=== PATIENT | male | born 1950 | race Caucasian/White ===

== ENCOUNTER 2020-07-23 18:34 | Inpatient (IN) ==
--- NOTE | 2020-07-23 18:58 | Emergency Department Note ---
History of Present Illness General Chief complaint: Head Injury, Minor Stated complaint: CONFUSION, Time Seen by Provider: 07/23/20 18:37 Source: patient Mode of arrival: EMS Limitations: altered mental status History of Present Illness Provider complaint: altered mental status Onset (ago): unknown This is a 70-year-old male presents emergency department via EMS for possible altered mental status. EMS reports bystanders at scene was concerned he was possibly injured while unloading a vehicle off of a truck. He states the reliability of this bystander is uncertain. Patient denies any injury, any pain. States he is uncertain who called 911 or why he is here. Patient states he thinks he has had occult problems but does not know what. He states he does take medications but cannot recall what they are. Patient otherwise cannot provide any additional history or information. Pt seen during a time of high acuity and national emergency pandemic while wearing PPE. Home Medications Medication Instructions Recorded Confirmed Type citalopram 40 mg PO DAILY 07/23/20 07/23/20 History trazodone 150 mg PO DAILY 07/23/20 07/23/20 History furosemide 20 mg PO DAILY PRN 07/24/20 07/24/20 History metoprolol tartrate 25 mg PO BID 07/24/20 07/24/20 History tamsulosin [Flomax] 0.4 mg PO DAILY 07/24/20 07/24/20 History Allergies Allergy/AdvReac Type Severity Reaction Status Date / Time [id number]-Tfh Reductase Allergy Severe unknown Verified 06/17/14 11:06 Inhibitor ketchup AdvReac Sneezing Unverified 07/23/20 20:07 Past Med/Surg History Social History Smoking Status: Never smoker Second Hand Exposure: Yes; Do You Dip or Chew Tobacco: No; Hx Alcohol Use: No Hx Substance Use: No Preferred Language: Slovak Communication Ability: Effective Cop Examiner Required: No Beliefs That Will Affect Care: None marital status: Single Current Living Situation: Alone Feels Safe at Home: Yes Safety Concerns: Feels Safe At This Time Assistive Devices: Glasses Review of Systems See HPI for pertinent positives & negatives. Unobtainable due to cognitive status Physical Exam Vital Signs Vital Signs - 24 hr 07/23/20 18:37 07/23/20 18:43 07/23/20 18:51 Temperature 37.3 C Temperature Source Oral Pulse Rate 71 80 Pulse Rate from SpO2 Sensor Respiratory Rate 28 H 16 Respiratory Effort / Characteristics Non-Labored Spontaneous Non-Labored Spontaneous Respiratory Depth Normal Normal Respiratory Pattern Regular Blood Pressure 164/100 H 164/100 H Blood Pressure Mean 121 121 Blood Pressure Position Semi-fowlers Pulse Oximetry 96 95 Oxygen Delivery Method Room Air Room Air Sepsis Recent Fever Within 48 Hours No Sepsis New/Unexplained Change in Mental Status N/A Sepsis Action Taken by Nursing No Action Required 07/23/20 19:39 07/23/20 20:18 07/23/20 20:30 Temperature Temperature Source Pulse Rate 68 74 67 Pulse Rate from SpO2 Sensor 69 74 67 Respiratory Rate 15 16 13 Respiratory Effort / Characteristics Respiratory Depth Respiratory Pattern Blood Pressure 152/102 H 157/114 H 158/98 H Blood Pressure Mean 118 128 118 Blood Pressure Position Pulse Oximetry 96 97 95 Oxygen Delivery Method Room Air Room Air Room Air Sepsis Recent Fever Within 48 Hours Sepsis New/Unexplained Change in Mental Status Sepsis Action Taken by Nursing 07/23/20 20:56 07/23/20 20:58 07/23/20 21:00 Temperature Temperature Source Pulse Rate 75 76 74 Pulse Rate from SpO2 Sensor 79 77 75 Respiratory Rate 16 13 Respiratory Effort / Characteristics Respiratory Depth Respiratory Pattern Blood Pressure 173/101 H 175/102 H 165/107 H Blood Pressure Mean 125 126 126 Blood Pressure Position Pulse Oximetry 96 97 96 Oxygen Delivery Method Room Air Room Air Room Air Sepsis Recent Fever Within 48 Hours Sepsis New/Unexplained Change in Mental Status Sepsis Action Taken by Nursing 07/23/20 21:29 07/23/20 21:30 07/23/20 22:00 Temperature Temperature Source Pulse Rate 72 72 71 Pulse Rate from SpO2 Sensor 72 72 71 Respiratory Rate 13 18 14 Respiratory Effort / Characteristics Respiratory Depth Respiratory Pattern Blood Pressure 182/107 H 166/104 H 178/110 H Blood Pressure Mean 132 124 132 Blood Pressure Position Pulse Oximetry 97 96 96 Oxygen Delivery Method Room Air Room Air Room Air Sepsis Recent Fever Within 48 Hours Sepsis New/Unexplained Change in Mental Status Sepsis Action Taken by Nursing 07/23/20 22:10 07/23/20 22:12 07/23/20 22:43 Temperature Temperature Source Pulse Rate 75 74 69 Pulse Rate from SpO2 Sensor 75 71 69 Respiratory Rate 17 18 17 Respiratory Effort / Characteristics Respiratory Depth Respiratory Pattern Blood Pressure 170/111 H 167/105 H 185/106 H Blood Pressure Mean 130 125 132 Blood Pressure Position Pulse Oximetry 96 96 96 Oxygen Delivery Method Room Air Room Air Room Air Sepsis Recent Fever Within 48 Hours Sepsis New/Unexplained Change in Mental Status Sepsis Action Taken by Nursing 07/23/20 23:10 07/23/20 23:12 07/23/20 23:30 Temperature Temperature Source Pulse Rate 68 71 Pulse Rate from SpO2 Sensor 76 69 71 Respiratory Rate 16 18 Respiratory Effort / Characteristics Respiratory Depth Respiratory Pattern Blood Pressure 167/102 H 161/102 H Blood Pressure Mean 123 121 Blood Pressure Position Pulse Oximetry 95 96 95 Oxygen Delivery Method Room Air Room Air Sepsis Recent Fever Within 48 Hours Sepsis New/Unexplained Change in Mental Status Sepsis Action Taken by Nursing 07/24/20 00:00 Temperature Temperature Source Pulse Rate 69 Pulse Rate from SpO2 Sensor 70 Respiratory Rate 15 Respiratory Effort / Characteristics Respiratory Depth Respiratory Pattern Blood Pressure 139/78 Blood Pressure Mean 98 Blood Pressure Position Pulse Oximetry 94 Oxygen Delivery Method Room Air Sepsis Recent Fever Within 48 Hours Sepsis New/Unexplained Change in Mental Status Sepsis Action Taken by Nursing GENERAL: alert, well appearing, well nourished, no distress, non-toxic HEAD: nc/at, no cephalohematoma, no galicia signs, no raccoon eyes EYE EXAM: normal conjunctiva, PERRL and EOM's grossly intact OROPHARYNX: no exudate, no erythema, lips, buccal mucosa, and tongue normal and mucous membranes are moist NECK: supple, no nuchal rigidity, no adenopathy, non-tender LUNGS: Clear to auscultation. Normal chest wall mechanics, no w/r/r HEART: no murmurs, S1 normal and S2 normal ABDOMEN: abdomen soft, non-tender, normo-active bowel sounds, no masses, no rebound or guarding. BACK: Back is symmetrical on inspection and there is no deformity, no midline tenderness, no CVA tenderness. SKIN: no rashes and no bruising UPPER EXTREMITIES: upper extremities are grossly normal. FROM, nml pulses b/l. LOWER EXTREMITIES: 2+ b/l pitting edema. FROM, nml pulses b/l. NEURO EXAM: Normal sensorium, cranial nerves II-XII grossly intact, normal speech, no gross weakness of arms, no gross weakness of legs. Gross sensation intact. Course Course 2135: Updated pt at bedside. 2215: Discussed with Dr. Bunch. 2250: Received a phone call from patient's sister, Roxann, cell phone [phone] who updated me on medication she found at the patient's residence. Trazodone 150 mg nightly, hydrobromide 40 mg p.o. daily, metoprolol tartrate 25 mg p.o. daily, nitro tabs as needed, furosemide 20 mg and pantoprazole 20 mg she stated were in bottles from 2019 and not more recent. He stated they were there was also vitamin D3, a multivitamin, iron supplementation at 65 mg, nasal spray, and tamsulosin 0.4 mg. Administered Medications Aspirin (Aspirin 81 Mg Ectab) 81 mg PO QAM ROXANA Stop: 08/23/20 08:59 Last Admin: 07/24/20 08:09 Dose: 81 mg Documented by: [id number] Citalopram Hydrobromide (Citalopram 40 Mg Tab) 40 mg PO DAILY ROXANA Stop: 08/23/20 08:59 Last Admin: 07/24/20 08:09 Dose: 40 mg Documented by: [id number] Metoprolol Tartrate (Metoprolol Tartrate 50 Mg Tab) 50 mg PO BID ROXANA Stop: 08/23/20 20:59 Last Admin: 07/24/20 20:06 Dose: 50 mg Documented by: [id number] Tamsulosin HCl (Tamsulosin Hcl 0.4 Mg Cap) 0.4 mg PO DAILY ROXANA Stop: 08/23/20 08:59 Last Admin: 07/24/20 08:09 Dose: 0.4 mg Documented by: [id number] Trazodone HCl (Trazodone Hcl 50 Mg Tab) 150 mg PO DAILY ROXANA Stop: 08/23/20 08:59 Last Admin: 07/24/20 08:09 Dose: 150 mg Documented by: [id number] Discontinued Medications Aspirin (Aspirin Chew 324 Mg) 324 mg PO NOW STA Stop: 07/23/20 21:54 Last Admin: 07/23/20 22:12 Dose: 324 mg Documented by: [id number] Gadobutrol (Gadobutrol 65ml Vial) 10 ml IV ONCE ONE Stop: 07/24/20 10:31 Last Admin: 07/24/20 10:30 Dose: 10 ml Documented by: [id number] Sodium Chloride (Nss 1000ml) 1,000 mls @ 125 mls/hr IV .Q8H ROXANA Stop: 08/22/20 18:59 Last Infusion: 07/24/20 07:12 Dose: 0 mls/hr Documented by: [id number] Infusion: 07/24/20 02:52 Dose: 75 mls/hr Documented by: [id number] Admin: 07/23/20 20:53 Dose: 125 mls/hr Documented by: [id number] Sodium Chloride (Nss 1000ml) 1,000 mls @ 75 mls/hr IV .[id number] ROXANA Stop: 07/24/20 15:28 Last Infusion: 07/24/20 17:39 Dose: 0 mls/hr Documented by: [id number] Admin: 07/24/20 06:10 Dose: 75 mls/hr Documented by: [id number] Infusion: 07/24/20 06:10 Dose: 75 mls/hr Documented by: [id number] Infusion: 07/24/20 04:39 Dose: 75 mls/hr Documented by: [id number] Admin: 07/24/20 02:59 Dose: 75 mls/hr Documented by: [id number] Thiamine HCl 500 mg/ Sodium (Chloride) 55 mls @ 208 mls/hr IV NOW STA Stop: 07/24/20 02:42 Last Infusion: 07/24/20 04:38 Dose: 0 mls/hr Documented by: [id number] Admin: 07/24/20 02:59 Dose: 208 mls/hr Documented by: [id number] Ioversol (Optiray 350 500ml) 120 ml IV ONCE ONE Stop: 07/23/20 20:40 Last Admin: 07/23/20 20:42 Dose: 120 ml Documented by: [id number] Metoprolol Tartrate (Metoprolol Tartrate 25 Mg Tab) 25 mg PO BID [facility] Stop: 08/23/20 08:59 Last Admin: 07/24/20 08:09 Dose: 25 mg Documented by: [id number] Metoprolol Tartrate (Metoprolol Tartrate 25 Mg Tab) 25 mg PO ONE ONE Stop: 07/24/20 11:46 Last Admin: 07/24/20 12:17 Dose: 25 mg Documented by: [id number] Potassium Chloride (Potassium Chloride Crtab 20 Meq Tabcr) 40 meq PO NOW STA Stop: 07/24/20 08:01 Last Admin: 07/24/20 08:12 Dose: 40 meq Documented by: [id number] Medical Decision Making Differential Diagnosis Differential diagnoses includes but is not limited to toxic, metabolic, infectious, traumatic, cardiac, neurologic, hematologic, psychiatric and inflammatory etiologies. Medical Records Attestation: I reviewed the patient's medical records. Home Medications Current Medication List: was personally reviewed by me Laboratory Data Attestation: I reviewed the patient's lab results. Result diagrams: 07/24/20 05:53 07/24/20 05:53 Lab Results 07/23/20 07/23/20 07/23/20 Range/Units 19:00 19:00 19:00 WBC 7.13 (4.8-10.8) K/uL RBC 4.79 (4.7-6.1) M/uL Hgb 11.0 L (14.0-18.0) g/dL Hct 36.0 L (42-52) % MCV 75.2 L (80-100) fL MCH 23.0 L (25-34) pg MCHC 30.6 L (32-36) g/dL RDW Std Deviation 49.7 H (36.4-46.3) fL RDW Coeff of Esther 17.8 H (11.5-14.5) % Plt Count 222 (130-400) K/uL MPV 10.9 H (7.4-10.4) fL Immature Gran % (Auto) 0.1 % Neut % (Auto) 67.5 % Lymph % (Auto) 18.4 % [place] % (Auto) 10.8 % Eos % (Auto) 2.9 % Baso % (Auto) 0.3 % Neut # (Auto) 4.81 (1.4-6.5) K/uL Lymph # (Auto) 1.31 (1.2-3.4) K/uL [place] # (Auto) 0.77 H (0.11-0.59) K/uL Eos # (Auto) 0.21 (0-0.5) K/uL Baso # (Auto) 0.02 (0-0.2) K/uL Immature Gran # (Auto) 0.01 (0.00-0.02) K/uL Sodium 145 (136-145) mmol/L Potassium 3.4 L (3.5-5.1) mmol/L Chloride 114 H (98-107) mmol/L Carbon Dioxide 24 (21-32) mmol/L Anion Gap 7.0 (3-11) BUN 9 (7-18) mg/dl Creatinine 1.22 (0.6-1.4) mg/dl Est Cr Clr Drug Dosing 66.6 ml/min Est GFR ( Amer) 69.7 ml/min Est GFR (Non-Af Amer) 60.1 ml/min BUN/Creatinine Ratio 7.3 L (10-20) Glucose 83 (70-99) mg/dl Calcium 8.5 (8.5-10.1) mg/dl Magnesium 1.8 (1.8-2.4) mg/dl Total Bilirubin 0.8 (0.2-1) mg/dl AST 16 (15-37) U/L ALT 19 (12-78) U/L Alkaline Phosphatase 61 (45-117) U/L Troponin I < 0.015 (0-0.045) ng/ml NT-Pro-B Natriuret Pep 397 (0-900) pg/ml Total Protein 6.3 L (6.4-8.2) gm/dl Albumin 3.2 L (3.4-5.0) gm/dl Globulin 3.1 (2.5-4.0) gm/dl Albumin/Globulin Ratio 1.0 (0.9-2) Triglycerides 76 (0-150) mg/dl Cholesterol 141 (0-200) mg/dl LDL Cholesterol, Calc 86 mg/dl VLDL Cholesterol, Calc 15 mg/dl HDL Cholesterol 40 mg/dl Cholesterol/HDL Ratio 4 Lipase 124 (73-393) U/L TSH 0.901 (0.300-4.500) uIu/ml Urine Color Urine Appearance (Clear) Urine pH (4.5-7.5) Ur Specific [place] (1.000-1.030) Urine Protein (Negative) Urine Glucose (UA) (Negative) Urine Ketones (Negative) Urine Blood (Negative) Urine Nitrite (Negative) Urine Bilirubin (Negative) Urine Urobilinogen (Negative) Ur Leukocyte Esterase (Negative) Urine Opiates Screen (Neg) Ur Methadone, Qual (Neg) Urine Barbiturates (Neg) Ur Phencyclidine (PCP) (Neg) U Amphetamin/Meth Scrn (Neg) MDMA (Ecstasy) Screen (Neg) U Benzodiazepines Scrn (Neg) Ur Cocaine Metabolite (Neg) U Marijuana (THC) Screen (Neg) Ethyl Alcohol mg/dL < 3.0 (0-3) mg/dl COVID-19 Eval Order SARS-CoV-2 (PCR) (Negative) 07/23/20 07/23/20 07/23/20 Range/Units 19:57 19:57 22:08 WBC (4.8-10.8) K/uL RBC (4.7-6.1) M/uL Hgb (14.0-18.0) g/dL Hct (42-52) % MCV (80-100) fL MCH (25-34) pg MCHC (32-36) g/dL RDW Std Deviation (36.4-46.3) fL RDW Coeff of Esther (11.5-14.5) % Plt Count (130-400) K/uL MPV (7.4-10.4) fL Immature Gran % (Auto) % Neut % (Auto) % Lymph % (Auto) % [place] % (Auto) % Eos % (Auto) % Baso % (Auto) % Neut # (Auto) (1.4-6.5) K/uL Lymph # (Auto) (1.2-3.4) K/uL [place] # (Auto) (0.11-0.59) K/uL Eos # (Auto) (0-0.5) K/uL Baso # (Auto) (0-0.2) K/uL Immature Gran # (Auto) (0.00-0.02) K/uL Sodium (136-145) mmol/L Potassium (3.5-5.1) mmol/L Chloride (98-107) mmol/L Carbon Dioxide (21-32) mmol/L Anion Gap (3-11) BUN (7-18) mg/dl Creatinine (0.6-1.4) mg/dl Est Cr Clr Drug Dosing ml/min Est GFR ( Amer) ml/min Est GFR (Non-Af Amer) ml/min BUN/Creatinine Ratio (10-20) Glucose (70-99) mg/dl Calcium (8.5-10.1) mg/dl Magnesium (1.8-2.4) mg/dl Total Bilirubin (0.2-1) mg/dl AST (15-37) U/L ALT (12-78) U/L Alkaline Phosphatase (45-117) U/L Troponin I (0-0.045) ng/ml NT-Pro-B Natriuret Pep (0-900) pg/ml Total Protein (6.4-8.2) gm/dl Albumin (3.4-5.0) gm/dl Globulin (2.5-4.0) gm/dl Albumin/Globulin Ratio (0.9-2) Triglycerides (0-150) mg/dl Cholesterol (0-200) mg/dl LDL Cholesterol, Calc mg/dl VLDL Cholesterol, Calc mg/dl HDL Cholesterol mg/dl Cholesterol/HDL Ratio Lipase (73-393) U/L TSH (0.300-4.500) uIu/ml Urine Color Yellow Urine Appearance Clear (Clear) Urine pH 6.5 (4.5-7.5) Ur Specific [place] 1.022 (1.000-1.030) Urine Protein Negative (Negative) Urine Glucose (UA) Negative (Negative) Urine Ketones Negative (Negative) Urine Blood Negative (Negative) Urine Nitrite Negative (Negative) Urine Bilirubin Negative (Negative) Urine Urobilinogen Negative (Negative) Ur Leukocyte Esterase Negative (Negative) Urine Opiates Screen Neg (Neg) Ur Methadone, Qual Neg (Neg) Urine Barbiturates Neg (Neg) Ur Phencyclidine (PCP) Neg (Neg) U Amphetamin/Meth Scrn Neg (Neg) MDMA (Ecstasy) Screen Pos H (Neg) U Benzodiazepines Scrn Neg (Neg) Ur Cocaine Metabolite Neg (Neg) U Marijuana (THC) Screen Neg (Neg) Ethyl Alcohol mg/dL (0-3) mg/dl COVID-19 Eval Order Covid19 at [facility] SARS-CoV-2 (PCR) (Negative) 07/23/20 Range/Units 22:08 WBC (4.8-10.8) K/uL RBC (4.7-6.1) M/uL Hgb (14.0-18.0) g/dL Hct (42-52) % MCV (80-100) fL MCH (25-34) pg MCHC (32-36) g/dL RDW Std Deviation (36.4-46.3) fL RDW Coeff of Esther (11.5-14.5) % Plt Count (130-400) K/uL MPV (7.4-10.4) fL Immature Gran % (Auto) % Neut % (Auto) % Lymph % (Auto) % [place] % (Auto) % Eos % (Auto) % Baso % (Auto) % Neut # (Auto) (1.4-6.5) K/uL Lymph # (Auto) (1.2-3.4) K/uL [place] # (Auto) (0.11-0.59) K/uL Eos # (Auto) (0-0.5) K/uL Baso # (Auto) (0-0.2) K/uL Immature Gran # (Auto) (0.00-0.02) K/uL Sodium (136-145) mmol/L Potassium (3.5-5.1) mmol/L Chloride (98-107) mmol/L Carbon Dioxide (21-32) mmol/L Anion Gap (3-11) BUN (7-18) mg/dl Creatinine (0.6-1.4) mg/dl Est Cr Clr Drug Dosing ml/min Est GFR ( Amer) ml/min Est GFR (Non-Af Amer) ml/min BUN/Creatinine Ratio (10-20) Glucose (70-99) mg/dl Calcium (8.5-10.1) mg/dl Magnesium (1.8-2.4) mg/dl Total Bilirubin (0.2-1) mg/dl AST (15-37) U/L ALT (12-78) U/L Alkaline Phosphatase (45-117) U/L Troponin I (0-0.045) ng/ml NT-Pro-B Natriuret Pep (0-900) pg/ml Total Protein (6.4-8.2) gm/dl Albumin (3.4-5.0) gm/dl Globulin (2.5-4.0) gm/dl Albumin/Globulin Ratio (0.9-2) Triglycerides (0-150) mg/dl Cholesterol (0-200) mg/dl LDL Cholesterol, Calc mg/dl VLDL Cholesterol, Calc mg/dl HDL Cholesterol mg/dl Cholesterol/HDL Ratio Lipase (73-393) U/L TSH (0.300-4.500) uIu/ml Urine Color Urine Appearance (Clear) Urine pH (4.5-7.5) Ur Specific [place] (1.000-1.030) Urine Protein (Negative) Urine Glucose (UA) (Negative) Urine Ketones (Negative) Urine Blood (Negative) Urine Nitrite (Negative) Urine Bilirubin (Negative) Urine Urobilinogen (Negative) Ur Leukocyte Esterase (Negative) Urine Opiates Screen (Neg) Ur Methadone, Qual (Neg) Urine Barbiturates (Neg) Ur Phencyclidine (PCP) (Neg) U Amphetamin/Meth Scrn (Neg) MDMA (Ecstasy) Screen (Neg) U Benzodiazepines Scrn (Neg) Ur Cocaine Metabolite (Neg) U Marijuana (THC) Screen (Neg) Ethyl Alcohol mg/dL (0-3) mg/dl COVID-19 Eval Order SARS-CoV-2 (PCR) NEGATIVE (Negative) Imaging Data Radiologist's Impression: Chest X-Ray 07/23/20 18:50 XR chest 1V portable CLINICAL HISTORY: Acute change in mental status COMPARISON STUDY: 06/17/2014 FINDINGS: The heart is enlarged. There is a large hiatal hernia. There is minor interstitial thickening. There is no lobar consolidation. Linear opacities the right lung base are likely atelectatic.[ There is mediastinal widening, likely secondary to film rotation, prominent great vessels, and the AP technique. IMPRESSION: 1. Cardiomegaly 2. Large hiatal hernia 3. Right basilar atelectasis ACT 112: Negative or not required by law. Electronically signed by: Hi Ness M.D. 07/23/2020 7:[address] 07/23/20 18:50 CT head/brain wo con CLINICAL HISTORY: Acute change in mental status COMPARISON STUDY: No previous studies for comparison. TECHNIQUE: Axial CT of the brain is performed from the vertex to the skull base. IV contrast was not administered for this examination. A dose lowering technique was utilized adhering to the principles of ALARA. CT DOSE: 884.08 mGy.cm FINDINGS: No intra or extra-axial mass lesions are visualized. There is no CT evidence of acute cortical infarction. There is no evidence of midline shift. There is no acute hemorrhage. No calvarial fractures are visualized. There are moderate white matter hypodensities likely on a small vessel basis. 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 There is an old deep white matter left frontal infarct. 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 There is no evidence of pathologic ventricular dilatation. 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 No acute intracranial findings ACT 112: Negative or not required by law. Electronically signed by: Hi Ness M.D. 07/23/2020 7:27 PM CTA head: No arterial occlusion, high-grade stenosis, aneurysm, or dissection. Radiologist: Gm Alcantar MD CTA neck: No arterial occlusion, high-grade stenosis, aneurysm, or dissection. Radiologist: Gm Alcantar MD MDM Narrative This is a 70-year-old male who presents via EMS due to confusion/altered mental status. Patient unable to provide time of onset or much history. After additional investigation and discussion with family, they reported noting that he seemed less alert/sharp compared to normal earlier this afternoon. Patient had no complaints here on arrival. Family did state that they were concerned for possible injury related to unloading the frame of a vehicle earlier this afternoon. Patient sent initially for CT without contrast of the head, labs sent and patient monitored on telemetry. Patient had no obvious signs of injury on exam at bedside. Labs are reassuring. Following additional discussion with the sister, Roxann, patient sent back for additional evaluation of possible stroke. Several hours later family was able to get into the patient's residence and give us a list of medications that they found as patient cannot recall any of his medications or why he takes them on my evaluation here. While patient did seem slightly better later on his evaluation in the emergency department, he was still not oriented and cannot recall portions of the day. Due to patient's risk of stroke, occult infection, and several other etiologies discussed with both the patient as well as his family, case was discussed with hospitalist for additional evaluation and management. I suspect that the finding of positive ecstasy on the urine drug screen is a false positive or contaminant from his other medications. I do not suspect primary drug use in this patient. Family denies any history of drug or alcohol abuse. Patient had a normal and nonfocal exam throughout. An order was placed for continuous cardiac monitoring. The monitor shows a rate of _70_ with _normal sinus_ rhythm. Impression & Plan AMS (altered mental status) Discharge Plan Visit Data Chief Complaint: Head Injury, Minor Stated Complaint: CONFUSION, ED Provider: Raysa Bustillos Discharge Problem: AMS (altered mental status) Patient Disposition: Admitted As Inpatient Discharge Instructions Interventions: ED Discharge Assessment Last Done: 07/24/20 01:53 Discharge Problem: AMS (altered mental status) Qualifiers: Altered mental status type: unspecified Qualified Code(s): R41.82 - Altered mental status, unspecified
[2020-07-23] MEDS ORDERED: SODIUM CHLORIDE 0.9% 1000ML 1,000 ML IV SCH (19:00)
--- NOTE | 2020-07-23 19:07 | XRay Report ---
XR chest 1V portable CLINICAL HISTORY: Acute change in mental status COMPARISON STUDY: 06/17/2014 FINDINGS: The heart is enlarged. There is a large hiatal hernia. There is minor interstitial thickeni ng. There is no lobar consolidation. Linear opacities the right lung base are likely atelectatic.[ Th ere is mediastinal widening, likely secondary to film rotation, prominent great vessels, and the AP t echnique. IMPRESSION: 1. Cardiomegaly 2. Large hiatal hernia 3. Right basilar atelectasis ACT 112: Negative or not required by law. Electronically signed by: Hi Ness M.D. 07/23/2020 7:05 PM
[2020-07-23 19:13] LABS: Basophils # (auto) 0.02 K/uL (0-0.2); Basophils % (auto) 0.3 %; Eosinophils # (auto) 0.21 K/uL (0-0.5); Eosinophils % (auto) 2.9 %; Immature Granulocytes # (auto) 0.01 K/uL (0.00-0.02); Immature Granulocytes % (auto) 0.1 %; Lymphocytes # (auto) 1.31 K/uL (1.2-3.4); Lymphocytes % (auto) 18.4 %; Mean Corpuscular Hgb Conc 30.6 g/dL (32-36); Mean Corpuscular Volume 75.2 fL (80-100); Mean Platelet Volume 10.9 fL (7.4-10.4); Monocytes # (auto) 0.77 K/uL (0.11-0.59); Monocytes % (auto) 10.8 %; Neutrophils # (auto) 4.81 K/uL (1.4-6.5); Neutrophils % (auto) 67.5 %; Platelet Count 222 K/uL (130-400); RDW Coefficient of Variation 17.8 % (11.5-14.5); RDW Standard Deviation 49.7 fL (36.4-46.3); Red Blood Count 4.79 M/uL (4.7-6.1); White Blood Count 7.13 K/uL (4.8-10.8)
[2020-07-23 19:29] LABS: Albumin Level 3.2 gm/dl (3.4-5.0); BUN Creatinine Ratio 7.3 (10-20); Blood Urea Nitrogen 9 mg/dl (7-18); Calcium 8.5 mg/dl (8.5-10.1); Carbon Dioxide 24 mmol/L (21-32); Chloride 114 mmol/L (98-107); Creatinine Clr Calc Pharmacy 66.6 ml/min; Est GFR (African American) 69.7 ml/min; Est GFR (Non-African American) 60.1 ml/min; Glucose 83 mg/dl (70-99); Lipase 124 U/L (73-393); Magnesium 1.8 mg/dl (1.8-2.4); Potassium 3.4 mmol/L (3.5-5.1); Sodium 145 mmol/L (136-145)
--- NOTE | 2020-07-23 19:29 | CT Scan Report ---
CT head/brain wo con CLINICAL HISTORY: Acute change in mental status COMPARISON STUDY: No previous studies for comparison. TECHNIQUE: Axial CT of the brain is performed from the vertex to the skull base. IV contrast was not administered for this examination. A dose lowering technique was utilized adhering to the principles of ALARA. CT DOSE: 884.08 mGy.cm FINDINGS: No intra or extra-axial mass lesions are visualized. There is no CT evidence of acute cortical infarc tion. There is no evidence of midline shift. There is no acute hemorrhage. No calvarial fractures ar e visualized. There are moderate white matter hypodensities likely on a small vessel basis. There is an old left pa rietal occipital infarct. There is an old deep white matter left frontal infarct. There is an old rig ht thalamic infarct. There is no evidence of pathologic ventricular dilatation. 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 No acute intracranial findi ngs ACT 112: Negative or not required by law. Electronically signed by: Hi Ness M.D. 07/23/2020 7:27 PM
[2020-07-23 19:40] LABS: Alanine Aminotransferase 19 U/L (12-78); Alkaline Phosphatase 61 U/L (45-117); Aspartate Aminotransferase 16 U/L (15-37); Bilirubin,Total 0.8 mg/dl (0.2-1); Globulin 3.1 gm/dl (2.5-4.0); NT Pro B Type Natriuretic Pept 397 pg/ml (0-900); Thyroid Stimulating Hormone 0.901 uIu/ml (0.300-4.500); Total Protein 6.3 gm/dl (6.4-8.2); Troponin I < 0.015 ng/ml (0-0.045)
[2020-07-23 20:13] LABS: Appearance Urine Clear (Clear); Bilirubin Urine Negative (Negative); Blood Urine Negative (Negative); Color Urine Yellow; Glucose Urine UA Negative (Negative); Ketones Urine Negative (Negative); Leukocyte Esterase Urine Negative (Negative); Nitrite Urine Negative (Negative); Protein Urine Negative (Negative); Specific Gravity Urine 1.022 (1.000-1.030); Urobilinogen Urine Negative (Negative); pH Urine 6.5 (4.5-7.5)
[2020-07-23 20:36] LABS: Amphetamines+Metham, Urine Neg (Neg); Barbiturates, Urine Neg (Neg); Benzodiazepine, Urine Neg (Neg); Cocaine, Urine Neg (Neg); MDMA (Ecstacy), Urine Pos (Neg); Methadone, Urine Neg (Neg); Opiate, Urine Neg (Neg); Phencyclidine, Urine Neg (Neg)
[2020-07-23] MEDS ORDERED: OPTIRAY 350 500ml IV ONE (20:39)
[2020-07-23 20:47] LABS: Chol HDL Ratio 4; Cholesterol 141 mg/dl (0-200); HDL Cholesterol 40 mg/dl; LDL Cholesterol Calculated 86 mg/dl; Triglycerides 76 mg/dl (0-150); VLDL Cholesterol 15 mg/dl
[2020-07-23] MEDS ORDERED: ASPIRIN CHEW 324 MG PO STA (21:53)
[2020-07-24] MEDS ORDERED: ACETAMINOPHEN 325 MG TAB PO PRN (02:09)
[2020-07-24] MEDS ORDERED: PHARMACIST DISCHARGE MED REC CONSULT PRN (02:09)
[2020-07-24] MEDS ORDERED: POLYETHYLENE (MIRALAX) 17 GM PACK PO PRN (02:09)
[2020-07-24] MEDS ORDERED: NITROGLYCERIN SL 0.4 MG/TAB TAB SL PRN (02:09)
[2020-07-24] MEDS ORDERED: ONDANSETRON INJ 2 MG/ML 2 ML VIAL IV PRN (02:09)
[2020-07-24] MEDS ORDERED: THIAMINE HCL 500 MG in SODIUM CHLORIDE 0.9% 50 ML IV STA (02:27)
[2020-07-24] MEDS: SODIUM CHLORIDE 0.9% 1000ML 1,000 ML IV SCH ×2 (02:59→06:10)
[2020-07-24 06:13] LABS: Basophils # (auto) 0.02 K/uL (0-0.2); Basophils % (auto) 0.4 %; Eosinophils # (auto) 0.22 K/uL (0-0.5); Eosinophils % (auto) 4.4 %; Hemoglobin 10.6 g/dL (14.0-18.0); Immature Granulocytes # (auto) 0.01 K/uL (0.00-0.02); Immature Granulocytes % (auto) 0.2 %; Lymphocytes # (auto) 1.15 K/uL (1.2-3.4); Lymphocytes % (auto) 22.9 %; Mean Corpuscular Hgb Conc 30.3 g/dL (32-36); Mean Corpuscular Volume 75.9 fL (80-100); Monocytes # (auto) 0.63 K/uL (0.11-0.59); Monocytes % (auto) 12.5 %; Neutrophils % (auto) 59.6 %; Platelet Count 196 K/uL (130-400); RDW Coefficient of Variation 18.3 % (11.5-14.5); RDW Standard Deviation 51.4 fL (36.4-46.3); Red Blood Count 4.61 M/uL (4.7-6.1); White Blood Count 5.03 K/uL (4.8-10.8)
[2020-07-24 06:45] LABS: BUN Creatinine Ratio 8.1 (10-20); Calcium 7.9 mg/dl (8.5-10.1); Creatinine Clr Calc Pharmacy 83.6 ml/min; Est GFR (African American) 91.9 ml/min; Est GFR (Non-African American) 79.3 ml/min; Potassium 3.3 mmol/L (3.5-5.1)
--- NOTE | 2020-07-24 07:54 | CT Scan Report ---
CT angio neck with con CLINICAL HISTORY: Change in mental status. Acute stroke. COMPARISON STUDY: No previous studies for comparison. TECHNIQUE: CT angiography was performed from the aortic arch to the skull base. MIP imaging was perfo rmed. The patient was scanned in a dynamic helical fashion during intravenous administration of 120 c c of Optiray. A dose lowering technique was utilized adhering to the principles of ALARA. CT DOSE: 634.69 mGy.cm Technique: CT angiogram of the carotid and vertebral arteries was obtained using intravenous contrast and 3-D reconstruction. NASCET criteria was utilized. Findings: The right carotid revealed no evidence of aneurysm and no evidence of dissection. There is no evidenc e of hemodynamic significant stenosis. The left carotid revealed no evidence of hemodynamic significant stenosis. There is no evidence of an eurysm. There is no evidence of dissection. There is no evidence of hemodynamically significant vertebral stenosis. There is no evidence of verte bral dissection. IMPRESSION: No evidence of hemodynamically significant carotid or vertebral artery stenosis. No evidence of disse ction. ACT 112: Negative or not required by law. Electronically signed by: Hi Ness M.D. 07/24/2020 7:52 AM
[2020-07-24] MEDS ORDERED: POTASSIUM CHLORIDE CRTAB 20 MEQ TABCR PO STA (08:00)
[2020-07-24] MEDS: ASPIRIN 81 MG ECTAB PO SCH (08:09)
[2020-07-24] MEDS: TAMSULOSIN HCL 0.4 MG CAP PO SCH (08:09)
[2020-07-24] MEDS: CITALOPRAM 40 MG TAB PO SCH (08:09)
[2020-07-24] MEDS: traZODone HCL 50 MG TAB PO SCH (08:09)
--- NOTE | 2020-07-24 08:12 | CT Scan Report ---
CT angio head w con CLINICAL HISTORY: Acute change in mental status. Possible acute stroke. TECHNIQUE: CT angiography of the head was performed in a dynamic helical fashion during intravenous a dministration of 120 cc of Optiray. MIP imaging was performed. A dose lowering technique was utilized adhering to the principles of ALARA. CT DOSE: COMPARISON STUDY: No previous studies for comparison. FINDINGS: There are no lesion suspicious for aneurysm. There are no major intracranial branch occlusi ons. The dural venous sinuses appear patent. IMPRESSION: Unremarkable CT angiogram of the brain for age ACT 112: Negative or not required by law. Electronically signed by: Hi Ness M.D. 07/24/2020 8:11 AM
[2020-07-24] MEDS ORDERED: METOPROLOL TARTRATE 25 MG TAB PO SCH (09:00)
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
[2020-07-24] MEDS ORDERED: GADOBUTROL 65ML VIAL IV ONE (10:30)
--- NOTE | 2020-07-24 10:48 | Magnetic Resonance Report ---
MRI OF THE BRAIN WITHOUT AND WITH IV CONTRAST CLINICAL HISTORY: stroke like symptoms COMPARISON STUDY: Head CT and CTA of the head July 23, 2020. TECHNIQUE: Utilizing a 1.5 Silva magnet and dedicated coil, multiplanar, multiecho imaging of the br ain was performed pre and postcontrast administration. IV administration of 10 mL of [address] contra st was uneventful. FINDINGS: There are no foci of restricted diffusion to suggest acute infarct. No acute intracranial h emorrhage, midline shift or mass effect is present. Ventricular system is unremarkable. Basal cistern s are patent. There are no extra-axial collections. Extensive white matter T2 hyperintense foci are n oted. Note is made of a 2.4 cm focus of encephalomalacia within the left parietal lobe. Old lacunar i nfarct within the right thalamus is noted. There is an old periventricular infarct within the left fr ontal lobe. Note is made of moderate atrophy. Calvarial signal is normal. Orbits are unremarkable. Th ere is no intracranial mass or pathologic enhancement. IMPRESSION: 1. No acute intracranial findings. 2. Extensive white matter T2 hyperintense foci suggestive of small vessel disease. Moderate atrophy. 3. 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 ACT 112: Negative or not required by law. Electronically signed by: Marcelo Faria M.D. 07/24/2020 10:46 AM
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
[2020-07-24] MEDS ORDERED: METOPROLOL TARTRATE 25 MG TAB PO ONE (11:45)
--- NOTE | 2020-07-24 12:00 | Hospitalist Progress Note ---
Date of Service July 24, 2020 Assessment & Plan (1) AMS (altered mental status): Was brought in with sudden loss of memory following him questionable fall without significant injury Cannot remember events until he was putting in the ambulance and noted to be confused by the family members Initial investigations including CT scan of the head, CTA of the head and neck, echocardiogram remain unremarkable MRI of the brain did not show small vessel disease with old small lacunar infarct He does not have any focal neurological deficit and seems to be completely recovered from his amnesia Likely had transient global amnesia-resolved now Appreciate neurology input and recommendation We will continue aspirin Get an EEG Outpatient neuro appointment Has had similar kind of episode about 5 years back He was taken to the [facility] and he was told that he suffered a stroke Did not have any residual symptoms from that He can remember with the he did have any high blood pressure during that time (2) Hypertension: Blood pressure remains on the upper side's more than 178 this morning Has been on metoprolol 25 mg twice daily We will increase the dose of metoprolol to 50 mg twice daily (3) Sleep apnea: History of sleep apnea and does not use his CPAP (4) Chronic kidney disease: Remains stable (5) Depression: Has been on trazodone DVT prophylaxis Increase ambulation SCDs for now Likely discharge tomorrow Admission and Anticipated Discharge Date Admission Date: July 24, 2020 Subjective 07/24/2020 The patient was seen and examined in telemetry unit He admitted with a history of fall with loss of consciousness He does not have any neurological or any other symptoms as of this morning He cannot exactly remember what happened to him following the incidence of fall without significant injury Review of Systems Review of Systems: All systems reviewed and are unremarkable except as noted below Neurologic: no gait abnormality, no unsteadiness, no paralysis, no tingling and no numbness Physical Exam Physical Exam: Sitting at the edge of the bed without any acute distress Constitutional: well developed, well nourished and + obese; not ill appearing Eyes: PERRL, conjunctivae normal, anicteric sclerae ENMT: external ear and nose normal, oropharynx normal Neck: trachea midline, no thyromegaly Respiratory: no respiratory distress Auscultation: lungs clear to auscultation bilaterally Cardiovascular: Rate/Rhythm: regular rate and regular rhythm Heart Sounds: no murmur Extremities: + edema (Trace edema bilaterally) Gastrointestinal (Abdomen): Inspection/Auscultation: normal bowel sounds; abdomen not distended Percussion/Palpation: abdomen soft; abdomen nontender Musculoskeletal: No acute arthritis in any joint Neurologic: PERRL, EOMI, accommodation nl, no face palsy, no dysarthria CN's II-XI intact bilaterally Speech / Cognition: normal speech Motor/Sensory: no tremor Gait: no ataxic gait Coordination: normal [id number] test Psychiatric: A+Ox3, euthymic affect Lymphatic: no cervical or axillary lymphadenopathy Results & Data Results & Data ([facility]) Vital Signs (Past 12 Hours) Vital Signs Temp Pulse Pulse Resp BP BP BP 07/24/20 07:44 36.6 C 72 20 178/89 H 07/24/20 02:00 66 07/24/20 01:53 36.8 C 67 16 165/96 H 171/99 H 07/24/20 00:30 64 15 119/77 07/24/20 00:00 69 15 139/78 Pulse Ox 07/24/20 07:44 97 07/24/20 02:00 07/24/20 01:53 96 07/24/20 00:30 95 07/24/20 00:00 94 Laboratory Results Short CBC 07/23/20 07/24/20 Range/Units 19:00 05:53 WBC 7.13 5.03 (4.8-10.8) K/uL Hgb 11.0 L 10.6 L (14.0-18.0) g/dL Hct 36.0 L 35.0 L (42-52) % Plt Count 222 196 (130-400) K/uL BMP 07/23/20 07/24/20 19:00 05:53 Sodium 145 144 Potassium 3.4 L 3.3 L Chloride 114 H 114 H Carbon Dioxide 24 25 BUN 9 8 Creatinine 1.22 0.97 Glucose 83 85 Calcium 8.5 7.9 L Cardiac Enzymes 07/23/20 Range/Units 19:00 Troponin I < 0.015 (0-0.045) ng/ml Liver Function 07/23/20 Range/Units 19:00 Total Bilirubin 0.8 (0.2-1) mg/dl AST 16 (15-37) U/L ALT 19 (12-78) U/L Alkaline Phosphatase 61 (45-117) U/L Albumin 3.2 L (3.4-5.0) gm/dl Urine 07/23/20 Range/Units 19:57 Urine Color Yellow Urine Appearance Clear (Clear) Urine pH 6.5 (4.5-7.5) Ur Specific Reyno 1.022 (1.000-1.030) Urine Protein Negative (Negative) Urine Glucose (UA) Negative (Negative) Medications Administered Current Inpatient Medications Acetaminophen (Acetaminophen 325 Mg Tab) 650 mg PO Q4H PRN PRN Reason: Pain or Fever Stop: 08/23/20 02:08 Aspirin (Aspirin 81 Mg Ectab) 81 mg PO QAM [facility] Stop: 08/23/20 08:59 Last Admin: 07/24/20 08:09 Dose: 81 mg Documented by: Citalopram Hydrobromide (Citalopram 40 Mg Tab) 40 mg PO DAILY [facility] Stop: 08/23/20 08:59 Last Admin: 07/24/20 08:09 Dose: 40 mg Documented by: Sodium Chloride (Nss 1000ml) 1,000 mls @ 75 mls/hr IV .[id number] [facility] Stop: 07/24/20 15:28 Last Admin: 07/24/20 06:10 Dose: 75 mls/hr Documented by: Metoprolol Tartrate (Metoprolol Tartrate 50 Mg Tab) 50 mg PO BID [facility] Stop: 08/23/20 20:59 Miscellaneous Information (Pharmacist Discharge Med Rec Consult) 1 ea N/A UD PRN PRN Reason: Consult Stop: 08/23/20 02:08 Nitroglycerin (Nitroglycerin Sl 0.4 Mg/Tab Tab) 0.4 mg SL UD PRN PRN Reason: Chest Pain Stop: 08/23/20 02:08 Ondansetron HCl (Ondansetron Inj 2 Mg/Ml 2 Ml Vial) 4 mg IV Q6H PRN PRN Reason: Nausea Stop: 08/23/20 02:08 Polyethylene Glycol (Polyethylene (Miralax) 17 Gm Pack) 17 gm PO DAILY PRN PRN Reason: Constipation Stop: 08/23/20 02:08 Tamsulosin HCl (Tamsulosin Hcl 0.4 Mg Cap) 0.4 mg PO DAILY [facility] Stop: 08/23/20 08:59 Last Admin: 07/24/20 08:09 Dose: 0.4 mg Documented by: Trazodone HCl (Trazodone Hcl 50 Mg Tab) 150 mg PO DAILY [facility] Stop: 08/23/20 08:59 Last Admin: 07/24/20 08:09 Dose: 150 mg Documented by: (1) AMS (altered mental status) Altered mental status type: unspecified Qualified Code(s): R41.82 - Altered mental status, unspecified
--- NOTE | 2020-07-24 18:47 | Electrocardiogram Report ---
Test Reason : Blood Pressure : / mmHG Vent. Rate : 070 BPM Atrial Rate : 070 BPM P-R Int : 204 ms QRS Dur : 072 ms QT Int : 420 ms P-R-T Axes : 043 017 018 degrees QTc Int : 453 ms Normal sinus rhythm Nonspecific ST abnormality When compared with ECG of 17-JUN-2014 12:12, Incomplete right bundle branch block is no longer Present Confirmed by Arnav Ruff ([id number]) on 07/24/2020 6:46:43 PM Referred By: REFERRED SELF Confirmed By:Isai Ruff
[2020-07-24] MEDS: METOPROLOL TARTRATE 50 MG TAB PO SCH (20:06)
[2020-07-25 07:18] LABS: Estimated Average Glucose 117 mg/dl; Hemoglobin A1C 5.7 % (4.5-5.6)
[2020-07-25 07:29] LABS: Basophils # (auto) 0.02 K/uL (0-0.2); Basophils % (auto) 0.4 %; Eosinophils % (auto) 5.5 %; Hematocrit (blood only) 35.5 % (42-52); Hemoglobin 10.9 g/dL (14.0-18.0); Immature Granulocytes # (auto) 0.01 K/uL (0.00-0.02); Immature Granulocytes % (auto) 0.2 %; Lymphocytes # (auto) 1.16 K/uL (1.2-3.4); Lymphocytes % (auto) 21.4 %; Mean Corpuscular Hemoglobin 23.2 pg (25-34); Mean Corpuscular Hgb Conc 30.7 g/dL (32-36); Mean Corpuscular Volume 75.7 fL (80-100); Mean Platelet Volume 10.7 fL (7.4-10.4); Monocytes # (auto) 0.79 K/uL (0.11-0.59); Monocytes % (auto) 14.5 %; Neutrophils # (auto) 3.15 K/uL (1.4-6.5); Platelet Count 191 K/uL (130-400); RDW Coefficient of Variation 18.2 % (11.5-14.5); RDW Standard Deviation 50.4 fL (36.4-46.3); Red Blood Count 4.69 M/uL (4.7-6.1); White Blood Count 5.43 K/uL (4.8-10.8)
[2020-07-25 08:07] LABS: BUN Creatinine Ratio 8.2 (10-20); Calcium 8.7 mg/dl (8.5-10.1); Creatinine Clr Calc Pharmacy 72.6 ml/min; Est GFR (African American) 78.1 ml/min; Est GFR (Non-African American) 67.4 ml/min; Potassium 3.7 mmol/L (3.5-5.1)
[2020-07-25] MEDS: TAMSULOSIN HCL 0.4 MG CAP PO SCH (08:36)
[2020-07-25] MEDS: ASPIRIN 81 MG ECTAB PO SCH (08:36)
[2020-07-25] MEDS: METOPROLOL TARTRATE 50 MG TAB PO SCH (08:36)
[2020-07-25] MEDS: CITALOPRAM 40 MG TAB PO SCH (08:36)
[2020-07-25] MEDS: traZODone HCL 50 MG TAB PO SCH (08:36)
--- NOTE | 2020-07-25 09:55 | Electroencephalogram ---
EEG Procedure Note Date of Service July 25, 2020 Start / End Times Start Time: 530 End Time: 550 Referring Physician Jose Miguel Lai MD History transient confusion Home Medication List Medication Instructions Recorded Confirmed Type citalopram 40 mg PO DAILY 07/23/20 07/23/20 History trazodone 150 mg PO DAILY 07/23/20 07/23/20 History furosemide 20 mg PO DAILY PRN 07/24/20 07/24/20 History metoprolol tartrate 25 mg PO BID 07/24/20 07/24/20 History tamsulosin [Flomax] 0.4 mg PO DAILY 07/24/20 07/24/20 History Inpatient Medication List Aspirin (Aspirin 81 Mg Ectab) 81 mg PO QAM [facility] Stop: 08/23/20 08:59 Last Admin: 07/25/20 08:36 Dose: 81 mg Documented by: [id number] Admin: 07/24/20 08:09 Dose: 81 mg Documented by: [id number] Citalopram Hydrobromide (Citalopram 40 Mg Tab) 40 mg PO DAILY [facility] Stop: 08/23/20 08:59 Last Admin: 07/25/20 08:36 Dose: 40 mg Documented by: [id number] Admin: 07/24/20 08:09 Dose: 40 mg Documented by: [id number] Metoprolol Tartrate (Metoprolol Tartrate 50 Mg Tab) 50 mg PO BID [facility] Stop: 08/23/20 20:59 Last Admin: 07/25/20 08:36 Dose: 50 mg Documented by: [id number] Admin: 07/24/20 20:06 Dose: 50 mg Documented by: [id number] Tamsulosin HCl (Tamsulosin Hcl 0.4 Mg Cap) 0.4 mg PO DAILY [facility] Stop: 08/23/20 08:59 Last Admin: 07/25/20 08:36 Dose: 0.4 mg Documented by: [id number] Admin: 07/24/20 08:09 Dose: 0.4 mg Documented by: [id number] Trazodone HCl (Trazodone Hcl 50 Mg Tab) 150 mg PO DAILY [facility] Stop: 08/23/20 08:59 Last Admin: 07/25/20 08:36 Dose: 150 mg Documented by: [id number] Admin: 07/24/20 08:09 Dose: 150 mg Documented by: [id number] Discontinued Medications Aspirin (Aspirin Chew 324 Mg) 324 mg PO NOW STA Stop: 07/23/20 21:54 Last Admin: 07/23/20 22:12 Dose: 324 mg Documented by: [id number] Gadobutrol (Gadobutrol 65ml Vial) 10 ml IV ONCE ONE Stop: 07/24/20 10:31 Last Admin: 07/24/20 10:30 Dose: 10 ml Documented by: [id number] Sodium Chloride (Nss 1000ml) 1,000 mls @ 125 mls/hr IV .Q8H [facility] Stop: 08/22/20 18:59 Last Infusion: 07/24/20 07:12 Dose: 0 mls/hr Documented by: [id number] Infusion: 07/24/20 02:52 Dose: 75 mls/hr Documented by: [id number] Admin: 07/23/20 20:53 Dose: 125 mls/hr Documented by: [id number] Sodium Chloride (Nss 1000ml) 1,000 mls @ 75 mls/hr IV .[id number] [facility] Stop: 07/24/20 15:28 Last Infusion: 07/24/20 17:39 Dose: 0 mls/hr Documented by: [id number] Admin: 07/24/20 06:10 Dose: 75 mls/hr Documented by: [id number] Infusion: 07/24/20 06:10 Dose: 75 mls/hr Documented by: [id number] Infusion: 07/24/20 04:39 Dose: 75 mls/hr Documented by: [id number] Admin: 07/24/20 02:59 Dose: 75 mls/hr Documented by: [id number] Thiamine HCl 500 mg/ Sodium (Chloride) 55 mls @ 208 mls/hr IV NOW STA Stop: 07/24/20 02:42 Last Infusion: 07/24/20 04:38 Dose: 0 mls/hr Documented by: [id number] Admin: 07/24/20 02:59 Dose: 208 mls/hr Documented by: [id number] Ioversol (Optiray 350 500ml) 120 ml IV ONCE ONE Stop: 07/23/20 20:40 Last Admin: 07/23/20 20:42 Dose: 120 ml Documented by: [id number] Metoprolol Tartrate (Metoprolol Tartrate 25 Mg Tab) 25 mg PO BID [facility] Stop: 08/23/20 08:59 Last Admin: 05/16/21 08:09 Dose: 25 mg Documented by: [id number] Metoprolol Tartrate (Metoprolol Tartrate 25 Mg Tab) 25 mg PO ONE ONE Stop: 07/24/20 11:46 Last Admin: 07/24/20 12:17 Dose: 25 mg Documented by: [id number] Potassium Chloride (Potassium Chloride Crtab 20 Meq Tabcr) 40 meq PO NOW STA Stop: 07/24/20 08:01 Last Admin: 07/24/20 08:12 Dose: 40 meq Documented by: [id number] Description This is a 21 electrode EEG with a single channel dedicated to limited EKG. The electrodes were placed in accordance with the International 10-20 system. This EEG was obtained as a bedside recording and is of excellent technical quality with few or no muscle movement artifacts. Photic stimulation was obtained. Drowsiness and light sleep was not recorded. Tracing was done exclusively during wakefulness. There is evidence for a symmetrical posterior head region maximal moderate voltage background rhythm in the alpha range of up to 9 Hz maximum frequency. Over the central regions mid frequency modest voltage theta activity is seen. Beta activity seen bifrontally and symmetrically. Stimulation evoked no important changes There is no evidence for potentially epileptogenic activity Interpretation This EEG is normal during wakefulness Clinical Correlation This EEG is normal revealing no evidence for focal or generalized encephalopathy or for potential epileptogenic activity Jose Miguel Lai MD
--- NOTE | 2020-07-25 11:17 | Hospitalist Progress Note ---
Date of Service July 25, 2020 Assessment & Plan (1) AMS (altered mental status): Was brought in with sudden loss of memory following him questionable fall without significant injury Cannot remember events until he was putting in the ambulance and noted to be confused by the family members Initial investigations including CT scan of the head, CTA of the head and neck, echocardiogram remain unremarkable MRI of the brain did not show small vessel disease with old small lacunar infarct He does not have any focal neurological deficit and seems to be completely recovered from his amnesia Likely had transient global amnesia-resolved now Appreciate neurology input and recommendation We will continue aspirin Get an EEG-negative and did not show any focal epileptic activity Outpatient neuro appointment with outpatient Zio patch as advised by the neurologist Remains asymptomatic and will be discharged home this afternoon Has had similar kind of episode about 5 years back He was taken to the [facility] and he was told that he suffered a stroke Did not have any residual symptoms from that He can remember with the he did have any high blood pressure during that time (2) Hypertension: Blood pressure remains on the upper side's more than 178 this morning Has been on metoprolol 25 mg twice daily We will increase the dose of metoprolol to 50 mg twice daily Blood pressure seems to be reasonably controlled with increasing dose of meto prolol (3) Sleep apnea: History of sleep apnea and does not use his CPAP (4) Chronic kidney disease: Remains stable (5) Depression: Has been on trazodone DVT prophylaxis Increase ambulation SCDs for now He will be discharged this afternoon Admission and Anticipated Discharge Date Admission Date: July 24, 2020 Subjective 07/24/2020 The patient was seen and examined in telemetry unit He admitted with a history of fall with loss of consciousness He does not have any neurological or any other symptoms as of this morning He cannot exactly remember what happened to him following the incidence of fall without significant injury 07/25/2020 Patient was seen and examined in telemetry unit He denies any complaints today and his amnesia is resolved No more confusion and does not have any neurological symptoms Will be discharged home this afternoon Review of Systems Review of Systems: All systems reviewed and are unremarkable except as noted below Neurologic: no gait abnormality, no paralysis, no numbness, no paresthesia, no tremor(s) and no headache(s) Physical Exam Physical Exam: Sitting at the edge of the bed without any acute distress Constitutional: well developed, well nourished and + obese; not ill appearing Eyes: PERRL, conjunctivae normal, anicteric sclerae ENMT: external ear and nose normal, oropharynx normal Neck: trachea midline, no thyromegaly Respiratory: no respiratory distress Auscultation: lungs clear to auscultation bilaterally Cardiovascular: Rate/Rhythm: regular rate and regular rhythm Heart Sounds: no murmur Extremities: + edema (Trace edema bilaterally) Gastrointestinal (Abdomen): Inspection/Auscultation: normal bowel sounds; abdomen not distended Percussion/Palpation: abdomen soft; abdomen nontender Musculoskeletal: No acute arthritis in any joint Neurologic: PERRL, EOMI, accommodation nl, no face palsy, no dysarthria CN's II-XI intact bilaterally Speech / Cognition: normal speech Motor/Sensory: no tremor Gait: no ataxic gait Coordination: normal omffof-qe-egml test Alert, awake and oriented x3. No focal sensory and/or motor deficit appreciated Psychiatric: A+Ox3, euthymic affect Lymphatic: no cervical or axillary lymphadenopathy Results & Data Results & Data ([facility]) Vital Signs (Past 12 Hours) Vital Signs Temp Pulse Pulse Resp BP BP Pulse Ox 07/25/20 09:00 55 L 07/25/20 07:35 36.5 C 55 L 20 149/88 H 96 07/25/20 03:01 36.6 C 65 18 135/78 96 07/24/20 23:28 36.6 C 67 18 127/74 93 Laboratory Results Short CBC 07/25/20 Range/Units 07:14 WBC 5.43 (4.8-10.8) K/uL Hgb 10.9 L (14.0-18.0) g/dL Hct 35.5 L (42-52) % Plt Count 191 (130-400) K/uL BMP 07/25/20 07:14 Sodium 145 Potassium 3.7 Chloride 113 H Carbon Dioxide 27 BUN 9 Creatinine 1.11 Glucose 95 Calcium 8.7 Medications Administered Current Inpatient Medications Acetaminophen (Acetaminophen 325 Mg Tab) 650 mg PO Q4H PRN PRN Reason: Pain or Fever Stop: 08/23/20 02:08 Aspirin (Aspirin 81 Mg Ectab) [facility] Stop: 08/23/20 08:59 Last Admin: 07/25/20 08:36 Dose: 81 mg Documented by: Citalopram Hydrobromide (Citalopram 40 Mg Tab) 40 mg PO DAILY [facility] Stop: 08/23/20 08:59 Last Admin: 07/25/20 08:36 Dose: 40 mg Documented by: Metoprolol Tartrate (Metoprolol Tartrate 50 Mg Tab) 50 mg PO BID [facility] Stop: 08/23/20 20:59 Last Admin: 07/25/20 08:36 Dose: 50 mg Documented by: Nitroglycerin (Nitroglycerin Sl 0.4 Mg/Tab Tab) 0.4 mg SL UD PRN PRN Reason: Chest Pain Stop: 08/23/20 02:08 Ondansetron HCl (Ondansetron Inj 2 Mg/Ml 2 Ml Vial) 4 mg IV Q6H PRN PRN Reason: Nausea Stop: 08/23/20 02:08 Polyethylene Glycol (Polyethylene (Miralax) 17 Gm Pack) 17 gm PO DAILY PRN PRN Reason: Constipation Stop: 08/23/20 02:08 Tamsulosin HCl (Tamsulosin Hcl 0.4 Mg Cap) 0.4 mg PO DAILY [facility] Stop: 08/23/20 08:59 Last Admin: 07/25/20 08:36 Dose: 0.4 mg Documented by: Trazodone HCl (Trazodone Hcl 50 Mg Tab) 150 mg PO DAILY [facility] Stop: 08/23/20 08:59 Last Admin: 07/25/20 08:36 Dose: 150 mg Documented by: (1) AMS (altered mental status) Altered mental status type: unspecified Qualified Code(s): R41.82 - Altered mental status, unspecified
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
[2020-07-27 22:17] LABS: MDA negative; MDEA negative; MDMA (Ecstasy) Urine, Confirm negative
== END 2020-07-25 17:47 | disposition home or self-care (01) | DRG 72 ==
LOC: ED 18:34 → 2S 07-24 00:12